=== PATIENT | male | born 1955 | race Caucasian/White ===

== ENCOUNTER 2024-11-17 19:58 | Emergency (ER) | payer MEDICARE, BC ==
[~2024-11-17] VITALS: Ht 185.4 cm; Wt 104.9 kg
[2024-11-17 21:56] LABS: BASOPHILS 1.4 % (0.2-1.2); EOSINOPHILS 2.4 % (0.8-7.0); LYMPHOCYTES 34.8 % (21.8-53.1); MCH 30.7 PG (25.7-32.2); MCHC 34.0 g/dL (32.3-36.5); MCV 90.3 fL (79.0-92.2); MONOCYTES 10.6 % (5.3-12.2); NEUTROPHILS 50.6 % (34.0-67.9); RBC 4.72 M/uL (4.63-6.08)
[2024-11-17] MEDS ORDERED: COLCHICINE 0.6 MG TAB PO ONE (22:15)
[2024-11-17] MEDS ORDERED: COLCRYS0.6 MG PO (22:17)
[2024-11-17] MEDS ORDERED: HYDROCODONE BIT/ACETAMINOPHEN 5/325 MG 1 TAB HOME.PACK PO ONE (22:30)
[2024-11-17 22:41] VITALS: BP 159/54
== END 2024-11-17 22:43 | disposition home or self-care (01) ==
LOC: ED 19:58
PROVIDERS: Family Medicine
DX: M10.9 Gout, unspecified (principal); I10 Essential (primary) hypertension; E78.00 Pure hypercholesterolemia, unspecified
CPT/HCPCS: 36415; 73630; 84550; 85025; 85379; 99283; A9270